=== PATIENT | female | born 1940 | race Caucasian/White ===

== ENCOUNTER 2020-08-29 10:22 | Emergency (ER) | payer MEDICARE ==
--- NOTE | 2020-08-29 10:59 | ERPHSYRPT ---
- History of Present Illness Time Seen by Provider: 08/29/20 10:56 Source: patient Exam Limitations: no limitations Patient Subjective Stated Complaint: Pt states "I was diagnosed with pneumonia last monday and I was testeed for covid and it was negative but this cough is just horrible." Triage Nursing Assessment: Pt presented alert and orietned X 3, skin pwd Pt ambulates with an upright steady gait, able to speak in clear full sentences pt in no apparet respriatory distress. Pt has persistant cough. Physician History: pt still having nagging cough- was neg for Covid, feels good , not short of breath, no CHest pain , no N/V. but just completed her prednisone. Timing/Duration: day(s) Cough Quality/Degree: moderate, dry cough Possible Cause: occasional episodes Modifying Factors: Improves With: nothing Associated Symptoms: cough, No chest pain/soreness, No dizziness, No shortness of breath Allergies/Adverse Reactions: No Known Drug Allergies Allergy (Verified 08/29/20 10:43) Home Medications: Azithromycin [Zithromax] 250 mg PO DAILY 08/29/20 [History] Cefdinir [Omnicef 300 mg] 300 mg PO DAILY 08/29/20 [History] Levothyroxine Sodium [Synthroid] 100 mcg PO DAILY 08/29/20 [History] Hx Tetanus, Diphtheria Vaccination/Date Given: No Hx Influenza Vaccination/Date Given: No Hx Pneumococcal Vaccination/Date Given: No Immunizations Up to Date: Yes Travel Risk - International Travel Have you traveled outside of the country in past 3 weeks: No - Coronavirus Screening Are you exhibiting any of the following symptoms?: No Close contact with a COVID-19 positive Pt in past 14-21 Days: No - Review of Systems Constitutional: Other (had fever last week), No Fever, No Chills Eyes: No Symptoms Ears, Nose, & Throat: No Symptoms Respiratory: Cough, No Dyspnea Cardiac: No Chest Pain, No Edema, No Syncope Abdominal/Gastrointestinal: No Abdominal Pain, No Nausea, No Vomiting, No Diarrhea Genitourinary Symptoms: No Dysuria Musculoskeletal: No Back Pain, No Neck Pain Skin: No Rash Neurological: No Dizziness, No Focal Weakness, No Sensory Changes Psychological: No Symptoms Endocrine: No Symptoms Hematologic/Lymphatic: No Symptoms Immunological/Allergic: No Symptoms All Other Systems: Reviewed and Negative - Past Medical History Pertinent Past Medical History: Yes Endocrine Medical History: Hypothyroidism - Past Surgical History Past Surgical History: Yes Other Surgical History: appi - Social History Smoking Status: Never smoker Exposure to second hand smoke: Yes Drug Use: none Patient Lives Alone: No - Female History Hx Now: No - Nursing Vital Signs Nursing Vital Signs: Initial Vital Signs Temperature 98.2 F 08/29/20 10:37 Pulse Rate 85 08/29/20 10:37 Respiratory Rate 24 08/29/20 10:37 Blood Pressure 147/73 08/29/20 10:37 O2 Sat by Pulse Oximetry 100 08/29/20 10:37 Pain Scale Pain Intensity 0 - Physical Exam General Appearance: no apparent distress, alert Eye Exam: PERRL/EOMI, eyes nml inspection Ears, Nose, Throat Exam: normal ENT inspection, TMs normal, pharynx normal, moist mucous membranes Neck Exam: normal inspection, non-tender, supple, full range of motion Respiratory Exam: normal breath sounds, lungs clear, No respiratory distress Cardiovascular Exam: regular rate/rhythm, normal heart sounds Gastrointestinal/Abdomen Exam: soft, No tenderness Back Exam: normal inspection, No CVA tenderness, No vertebral tenderness Extremity Exam: normal inspection, normal range of motion Neurologic Exam: alert, oriented x 3, cooperative, normal mood/affect, sensation nml, No motor deficits Skin Exam: normal color, warm, dry, No rash Lymphatic Exam: No adenopathy SpO2 Interpretation: normal SpO2: 100 O2 Delivery: Room Air - Course Nursing assessment & vital signs reviewed: Yes Ordered Tests: Active Orders 24 hr Category Date Time Status CHEST 1 VIEW (PORTABLE) Stat Exams 08/29/20 10:59 Taken - Progress Progress: improved, re-examined Air Movement: good Progress Note: 08/29/20 13:22 pt is with similar CXR and nodules to f/u PCP; Recently stopped pred/ran out and will need to resume and also her preethi perls; she is doing OK otherwise and feels fine- we discussed that she may be clinical Covid and needs to SQ and see her DrChema in followup- she prefers outpt rather than inhouse tx at this time since she still feels well except the cough , and has no CP or shortness of breath. We have discussed the possible covid increased complications risks and she chooses DC with outpt f/u and tx as discussed and will continue her AB, and see PCP this week and return meantime if not improving; she has the capacity to make this choice. Blood Culture(s) Obtained: No Antibiotics given: No Counseled pt/family regarding: diagnosis, need for follow-up, rad results - Departure Departure Disposition: Home Clinical Impression: clinical equivalent of Covid Condition: Good Critical Care Time: No Referrals: NBA BAY [Primary Care Provider] - Instructions: Cough, Adult (DC), Coronavirus Disease 2019 (COVID-19) (DC) Additional Instructions: we are giving you Covid instructions since even with negative test you may have/had the infection clinically with your symptoms. your pneumonia is about the same as recent CXR and also has nodules to followup with your DrChema as on that film. See your Dr. and do quarantine as if you could have COvid. Return meantime if any shortness of breath or other concerns.
[2020-08-29 13:58] VITALS: BP 127/86; PULSE 72; O2SAT 97
--- NOTE | 2020-08-29 18:59 | XRAY ---
Indication: Cough. Comparison: August 22, 2020. Portable chest demonstrates new subtle left base infiltrate versus atelectasis. Remaining heart and lungs unremarkable again with incidental right base calcified granuloma.
== END 2020-08-29 13:57 | disposition home or self-care (01) ==
LOC: ED 10:22
DX: U07.1 COVID-19 (principal); R05 Cough; Z79.899 Other long term (current) drug therapy
CPT/HCPCS: 71045; 99283

== ENCOUNTER 2022-08-19 19:14 | Emergency (ER) | payer MEDICARE ==
--- NOTE | 2022-08-19 19:26 | ERPHSYRPT ---
- History of Present Illness Time Seen by Provider: 08/19/22 19:26 Source: patient Exam Limitations: no limitations Physician History: This is a 81-year-old white female who was bitten on the right thumb by a mouse who was eating the dog food. She killed the mouse. She was concerned that she did not have a tetanus status it was up-to-date. She was also wondering about rabies. She has no other complaints or concerns Timing/Duration: today Severity: mild Location: hands (Right thumb) Possible Causes: other (House bite) Associated Symptoms: denies symptoms Allergies/Adverse Reactions: No Known Drug Allergies Allergy (Verified 08/29/20 10:43) Home Medications: Azithromycin [Zithromax] 250 mg PO DAILY 08/29/20 [History] Cefdinir [Omnicef 300 mg] 300 mg PO DAILY 08/29/20 [History] Levothyroxine Sodium [Synthroid] 100 mcg PO DAILY 08/29/20 [History] Hx Tetanus, Diphtheria Vaccination/Date Given: No Hx Influenza Vaccination/Date Given: No Hx Pneumococcal Vaccination/Date Given: No Travel Risk - International Travel Have you traveled outside of the country in past 3 weeks: No - Coronavirus Screening Are you exhibiting any of the following symptoms?: No Close contact with a COVID-19 positive Pt in past 14-21 Days: No - Review of Systems Constitutional: No Symptoms Eyes: No Symptoms Ears, Nose, & Throat: No Symptoms Respiratory: No Symptoms Cardiac: No Symptoms Abdominal/Gastrointestinal: No Symptoms Genitourinary Symptoms: No Symptoms Musculoskeletal: No Symptoms Skin: Other (Mouse bite tip of right thumb) Neurological: No Symptoms Psychological: No Symptoms Endocrine: No Symptoms Hematologic/Lymphatic: No Symptoms Immunological/Allergic: No Symptoms All Other Systems: Reviewed and Negative - Past Medical History Pertinent Past Medical History: Yes Neurological History: Migraines Cardiac History: No Pertinent History Respiratory History: Pneumonia Endocrine Medical History: Hypothyroidism, Other Musculoskeletal History: Osteoarthritis Other Medical History: HISTORY OF UTI, HISTORY OF A R SHOULDER BONE SPUR. - Past Surgical History Past Surgical History: Yes Other Surgical History: appi - Social History Smoking Status: Never smoker Exposure to second hand smoke: Yes Drug Use: none Patient Lives Alone: No - Nursing Vital Signs Nursing Vital Signs: Initial Vital Signs Temperature 97.5 F 08/19/22 19:24 Pulse Rate 79 08/19/22 19:24 Respiratory Rate 18 08/19/22 19:24 Blood Pressure 176/104 08/19/22 19:24 O2 Sat by Pulse Oximetry 96 08/19/22 19:24 Pain Scale Pain Intensity 0 - Physical Exam General Appearance: no apparent distress, alert, anxiety Eye Exam: PERRL/EOMI, eyes nml inspection Ears, Nose, Throat Exam: normal ENT inspection, moist mucous membranes Neck Exam: normal inspection, non-tender, supple, full range of motion Respiratory Exam: airway intact, No chest tenderness, No respiratory distress Gastrointestinal/Abdomen Exam: No tenderness Pelvic Exam: not done Rectal Exam: not done Back Exam: normal inspection, normal range of motion, No CVA tenderness, No vertebral tenderness Extremity Exam: normal inspection, normal range of motion, pelvis stable Neurologic Exam: alert, oriented x 3, cooperative, manager export II-XII nml as tested, normal mood/affect, nml cerebellar function, nml station & gait, sensation nml Skin Exam: other (Punctate mouse bite tip of right thumb. No bleeding. No foreign body. No infection) Lymphatic Exam: No adenopathy SpO2 Interpretation: normal O2 Delivery: Room Air - Course Nursing assessment & vital signs reviewed: Yes Ordered Tests: Medication Summary Discontinued Medications Generic Name Dose Route Start Last Admin Trade Name Freq PRN Reason Stop Dose Admin Diphtheria/Tetanus/Acell Pertussis 0.5 ml 08/19/22 19:44 08/19/22 19:50 Tdap --Diph,Pertuss(Acell),Tet Vac/Pf 0.5 Ml Vial IM 08/19/22 19:45 0.5 ml .ONCE ONE Administration Diphtheria/Tetanus/Acell Pertussis Confirm 08/19/22 19:46 Tdap --Diph,Pertuss(Acell),Tet Vac/Pf 0.5 Ml Vial Administered 08/19/22 19:47 Dose 0.5 ml IM .STK-MED ONE - Progress Progress: unchanged Counseled pt/family regarding: diagnosis - Departure Departure Disposition: Home Clinical Impression: Bitten by mouse, initial encounter Condition: Stable Critical Care Time: No Referrals: NBA ECKERT [Primary Care Provider] - Follow up/PCP as directed Additional Instructions: Keep site clean daily with soap and water. Do not cover with antibiotic ointment. May use Tylenol and ibuprofen, if no contraindications, for pain control
[2022-08-19] MEDS ORDERED: Adacel Vial IM ONE ×2 (19:44→19:46)
[2022-08-19 20:00] VITALS: BP 167/99; PULSE 65; O2SAT 98
== END 2022-08-19 20:03 | disposition home or self-care (01) ==
LOC: ED 19:14
DX: S60.371A Other superficial bite of right thumb, initial encounter (principal); W53.01XA Bitten by mouse, initial encounter; Z79.899 Other long term (current) drug therapy
CPT/HCPCS: 90471; 90715; 99282

== ENCOUNTER 2024-01-01 09:50 | Day surgery (SDC) | payer MEDICARE ==
--- NOTE | 2024-01-01 09:09 | HP ---
DATE OF SURGERY: 01/01/2024 HISTORY OF PRESENT ILLNESS: The patient is an 83-year-old last colonoscopy three years ago. History of polyps in the past, in need of follow up colonoscopy. No bloody stools. Family history negative for colon cancer. PAST MEDICAL HISTORY: Decreased renal function, hypothyroidism, macular degeneration. PAST SURGICAL HISTORY: Cataract surgery. Hysterectomy. Breast lumpectomy that was benign in the past. Appendectomy. MEDICATIONS: Zyrtec, Singulair, nitrofurantoin, solifenacin succinate, Preservision Areds capsules, Synthroid. ALLERGIES: NKDA. FAMILY HISTORY: Lung cancer, negative for colon cancer. SOCIAL HISTORY: No smoking or alcohol abuse. REVIEW OF SYSTEMS: Twelve systems reviewed. No chest pain or palpitations. Other systems negative or noncontributory as above and per preadmission questionnaire. PHYSICAL EXAMINATION: Height 5 feet 4 inches. BMI 20.6. GENERAL: No acute distress. HEENT: Sclerae nonicteric. EOMI. Oral mucous membranes moist. NECK: No JVD. CHEST: Equal excursion, nonlabored breathing. CVS: Regular rate and rhythm. ABDOMEN: Soft. No peritoneal signs. EXTREMITIES: No significant edema. NEURO: Alert, oriented, moving extremities symmetrically. RECTAL: Deferred timed to endoscopy exam. PSYCH: Appropriate mood and affect. SKIN: Dry. IMPRESSION: History of polyps, needs follow up screening colonoscopy. I feel the patient is a candidate. Shown the risk sheet, explained the procedure in detail including but not limited to risk of bleeding or infection, risk of bowel injury possibly requiring open procedure, risk of incomplete exam possibly requiring barium enema, risk of missed or nondiagnosis, risk of sedation, risk of bowel prep but not limited to, consent obtained. Will proceed with outpatient colonoscopy under MAC anesthesia. Continue medications for hypothyroidism, allergies and macular degeneration.
[2024-01-01] MEDS ORDERED: Lactated Ringers 1,000 ML IV ONE (10:13)
[2024-01-01] MEDS: Lactated Ringers 1,000 ML IV SCH (10:41)
[2024-01-01] MEDS ORDERED: DIPRIVAN 200 MG/20 ML IV ONE (13:07)
[2024-01-01 13:51] VITALS: RESP 16
[2024-01-01 14:09] VITALS: BP 143/69; PULSE 54; TEMP 97.3; O2SAT 99
--- NOTE | 2024-01-01 14:33 | OP ---
SURGERY DATE/TIME: 01/01/2024 1307 PREOPERATIVE DIAGNOSIS: History of polyps, need for follow up colonoscopy. POSTOPERATIVE DIAGNOSES: 1) Small transverse colon polyp. 2) Diverticulosis left colon. 3) Fair bowel prep. 4) ASA Class II. PROCEDURES: 1) Colonoscopy to cecum. 2) Hot biopsy polypectomy small early polyp versus hyperplastic lesion transverse colon. SURGEON: Dr. Benji Aguirre M.D. ANESTHESIA: MAC. QUANTITATIVE BLOOD LOSS: Minimal. INDICATIONS: As noted above. Risks and benefits explained in detail but not limited to and consent obtained. DESCRIPTION OF PROCEDURE AND FINDINGS: The patient taken to the endoscopy room. MAC anesthesia induced. After official time out and no disagreement with planned procedure, digital rectal exam did not reveal any rectal masses. Video colonoscope inserted and passed up through the tortuous sigmoid, descending, transverse and ascending colon around to the cecum. Appendiceal orifice and valve well visualized and photo documented. Prep overall was fair with a little bit of liquidy semisolid stool scattered throughout the colon slightly limiting the exam for very small lesions. The scope slowly and carefully withdrawn. There were no signs of any large polyps, masses or obstructing lesions. Just a small polyp in the transverse colon removed with hot biopsy polypectomy. It should be noted that there was a little bit of bruised scar there in the transverse colon whether she had prior polypectomy at that site or not. No signs of any regrowth in that area if that was from a prior polypectomy. Otherwise, she had some diverticulosis in the left colon. No signs of any large polyps, masses or obstructing lesions. There were no immediate complications. There were no family available to discuss the findings with. I will see her back in the office next week to go over path results.
== END 2024-01-01 14:19 | disposition home or self-care (01) ==
LOC: SDC 09:50
PROVIDERS: ATTEND Surgery
DX: Z12.11 Encounter for screening for malignant neoplasm of colon (principal); Z09 Encounter for follow-up examination after completed treatment for conditions other than malignant neoplasm; Z86.010 Personal history of colon polyps; Z80.1 Family history of malignant neoplasm of trachea, bronchus and lung; K57.30 Diverticulosis of large intestine without perforation or abscess without bleeding; D12.3 Benign neoplasm of transverse colon
CPT/HCPCS: 99100; J2704